=== PATIENT | female | born 1985 | race Two or more races ===

== ENCOUNTER 2025-02-24 02:17 | Emergency (ER) | payer SELFPAY ==
[~2025-02-24] VITALS: Ht 167.6 cm; Wt 79.4 kg
[2025-02-24] MEDS: IOHEXOL 300 MG/ML 100ML BOTTLE IJ ONE (03:42)
[2025-02-24] MEDS: SODIUM CHLORIDE 0.9% 1,000 ML IV ONE (03:42)
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
[2025-02-24 04:35] LABS: Hematocrit 35.3 % (36.0-46.0); Hemoglobin 11.7 g/dL (12.2-16.2); Mean Corpuscular Hemoglobin 27.3 pg (28.0-32.0); Mean Corpuscular Volume 82.4 fL (80.0-100.0); Nucleated Red Blood Cells % 0.0 %
[2025-02-24 04:54] LABS: Alanine Aminotransferase 26 U/L (7-40); Alkaline Phosphatase 89 U/L (46-116); Anion Gap 10 (5-15); BUN/Creatinine Ratio 11.0 (10.0-20.0); Carbon Dioxide 23 mmol/L (20-31); Potassium 3.7 mmol/L (3.5-5.1); Total Protein 7.1 g/dL (5.7-8.2)
[2025-02-24 04:55] LABS: Albumin 4.4 g/dL (3.2-4.8)
[2025-02-24 05:02] LABS: INR 0.97 (0.9-1.15); Partial Thromboplastin Time 26.5 SEC (24.5-34.5); Prothrombin Time 10.3 sec (9.3-11.8)
[2025-02-24 05:09] LABS: Bilirubin, Total 0.3 mg/dL (0.2-1.0); Blood Urea Nitrogen 9 mg/dL (9-23); Calcium 8.4 mg/dL (8.7-10.4); Chloride 113 mmol/L (98-107); Glucose 142 mg/dL (74-106); Sodium 146 mmol/L (136-145)
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
[2025-02-24] MEDS: ONDANSETRON HCL 4 MG/2 ML VIAL IV ONE (06:01)
[2025-02-24] MEDS: HYDROmorphone HCL 2 MG/ML VL/or syr IV ONE ×2 (06:03→09:26)
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
[2025-02-24 07:30] LABS: Hematocrit 34.8 % (36.0-46.0); Hemoglobin 11.7 g/dL (12.2-16.2)
[2025-02-24 07:31] VITALS: PULSE 100; RESP 16; O2SAT 99
[2025-02-24 09:04] VITALS: TEMP 97.9; O2SAT 99
[2025-02-24 09:26] VITALS: BP 107/58; PULSE 109; RESP 19
--- NOTE | 2025-02-27 07:02 | ECG ---
[facility] Test Date: 2025-02-24 Test Time: 03:20:34 Pat Name: ROXANNE OLIVEROSLYRICS Department: [facility] ED Patient ID: [facility]-[id number] Room: Gender: F Pharmaceutical Sales Representative: KATHRYN : 1985 Requested By: HIWOT CENTENO Order Number: [id number] Reading MD: Measurements Intervals [place] Rate: 109 P: 43 CT: 183 QRS: 33 QRSD: 72 T: 4 QT: 310 QTc: 418 Interpretive Statements Sinus tachycardia Borderline T abnormalities, anterior leads Please click the below link to view image of tracing.
== END 2025-02-24 06:55 | disposition short-term general hospital (02) ==
LOC: ER 02:17 → EDBD 02:17 → ER 06:55
DX: S22.20XA Unspecified fracture of sternum, initial encounter for closed fracture (principal); S22.42XA Multiple fractures of ribs, left side, initial encounter for closed fracture; S82.892A Other fracture of left lower leg, initial encounter for closed fracture; R42 Dizziness and giddiness; F10.920 Alcohol use, unspecified with intoxication, uncomplicated; Z98.51 Tubal ligation status; Z90.49 Acquired absence of other specified parts of digestive tract; Z98.890 Other specified postprocedural states; V43.52XA Car driver injured in collision with other type car in traffic accident, initial encounter; Y93.89 Activity, other specified; Y92.488 Other paved roadways as the place of occurrence of the external cause; Y99.8 Other external cause status; Y90.6 Blood alcohol level of 120-199 mg/100 ml
CPT/HCPCS: 29515; 36415; 70450; 70486; 71260; 72125; 73552; 73590; 73620; 80053; 80320; 84702; 85014; 85018; 85025; 85610; 85730; 96361; 96374; 96375; 96376; 99291; J1171; J2405; J7030; Q9967; 93005